=== PATIENT | male | born 1985 | race Caucasian/White ===

== ENCOUNTER 2022-01-09 20:05 | Emergency (ER) | payer BC ==
[~2022-01-09] VITALS: Ht 175.3 cm; Wt 118.8 kg
[2022-01-09 20:46] VITALS: BP 153/88
--- NOTE | 2022-01-09 20:54 | NUR ---
Patient ambulates with strong gait to bed 7. Addendum: 01/09/22 at 2056 by [email or web address] Patient ambulates with strong gait to bed 12.
--- NOTE | 2022-01-09 20:55 | NUR ---
pt to bed 12
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
--- NOTE | 2022-01-09 21:18 | NUR ---
TETANUS WITHIN 5 YEARS
[2022-01-09] MEDS ORDERED: AMOX-1230 PO (21:22)
[2022-01-09 21:45] VITALS: BP 122/65
--- NOTE | 2022-01-09 21:46 | NUR ---
Patient discharged with v/s stable. Written and verbal after care instructions given and explained. Patient verbalized understanding. Ambulatory with steady gait. All questions addressed prior to discharge. Advised to follow up with PMD.
== END 2022-01-09 21:24 | disposition home or self-care (01) ==
LOC: MED 20:05
DX: S61.451A Open bite of right hand, initial encounter (principal); L03.011 Cellulitis of right finger; W54.0XXA Bitten by dog, initial encounter; Y93.89 Activity, other specified; Y92.89 Other specified places as the place of occurrence of the external cause; Y99.8 Other external cause status
CPT/HCPCS: 99283